=== PATIENT | female | born 1980 | race Caucasian/White ===

== ENCOUNTER 2017-03-31 03:08 | Inpatient (IN) | payer OTHER ==
[2017-03-31] VITALS: BP 118/70; RESP 17
[~2017-03-31] VITALS: Ht 154.9 cm; Wt 70.6 kg
[~2017-03-31 03:08] MED LIST: NO MEDS TAKEN
[2017-03-31 03:22] VITALS: Ht 154.9 cm; Wt 70.6 kg
[2017-03-31 03:23] VITALS: BP 121/70; PULSE 88; RESP 18
--- NOTE | 2017-03-31 04:12 | RADRPT ---
PROCEDURE: Biophysical profile. CLINICAL INDICATION: Pelvic pain. TECHNIQUE: Multiple sonographic images of the pelvis were obtained with transabdominal technique. COMPARISON: No prior studies are available for comparison. FINDINGS: There is a single living intrauterine gestation with the fetus in a vertex position. The placenta i s left lateral in location, grade II. heart tones of 154 beats per minute are identified. The re is normal amniotic fluid volume with an YEN of 10.7 cm. breathing movements = 2 Gross body movements = 2 tone = 2 Qualitative AFV = 2 IMPRESSION: Biophysical profile 8 out of 8. .Nathan Day MD, MD Date Time Electronically viewed and signed by .Nathan Day MD, MD on 03/31/2017 04:12 .T/
--- NOTE | 2017-03-31 04:14 | RADRPT ---
PROCEDURE: Obstetrical ultrasound, limited. CLINICAL INDICATION: Pelvic pain. TECHNIQUE: Multiple sonographic images of the pelvis were obtained using transabdominal technique . Images were obtained with nguyen scale and color Doppler. The images were reviewed on a PACS works tation. COMPARISON: No prior studies are available for comparison. FINDINGS: There is a single living intrauterine gestation with the fetus in a vertex presentation. hear t tones of 137 beats per minute are identified. The placenta is left lateral in location, grade 2. There is no evidence of placenta previa or abruption. Measurements were made in order to determine age. The results are as follows: BPD =8.65 cm HC =32.14 cm AC =37.24 cm FL =7.27 cm. Estimated gestational age of approximately 37 weeks and 3 days. The estimated date of delivery is 04/18/2017. The EFW = 3635 +/- 545 grams. Estimated weight percentage equals 65.3%. IMPRESSION: Single viable intrauterine gestation of approximately 37 weeks and 3 days, with an ultrasound KARISHMA of 04/18/2017. .Nathan Day MD, MD Date Time Electronically viewed and signed by .Nathan Day MD, MD on 03/31/2017 04:14 .T/
[2017-03-31] MEDS ORDERED: LIDOCAINE 1% (MPF) 30 ML INJ INJ PRN (06:30)
[2017-03-31] MEDS ORDERED: OXYTOCIN 30 UNITS/LR 500 ML IV SCH ×3 (06:30→19:45)
[2017-03-31] MEDS ORDERED: MISOPROSTOL 200 MCG TAB PR PRN ×2 (06:30→20:00)
[2017-03-31] MEDS ORDERED: BUTORPHANOL 2 MG INJ IV PRN (06:30)
[2017-03-31] MEDS ORDERED: OXYTOCIN 30 UNITS/LR 500 ML IV PRN ×2 (06:30→20:00)
[2017-03-31] MEDS ORDERED: METHYLERGONOVINE 0.2 MG INJ IM PRN ×2 (06:30→20:00)
[2017-03-31] MEDS ORDERED: CARBOPROST 250 MCG INJ IM PRN ×2 (06:30→20:00)
[2017-03-31] MEDS: LACTATED RINGER'S 1,000 ML IV SCH ×2 (06:56→14:57)
[2017-03-31] MEDS ORDERED: LACTATED RINGER'S 1,000 ML IV PRN (07:00)
[2017-03-31] MEDS ORDERED: LACTATED RINGER'S 1,000 ML IV ONE (07:15)
[2017-03-31 07:16] LABS: BASOPHILS % 0.2 % (0.0-2.0); EOSINOPHILS % 0.2 % (0.0-7.0); HEMATOCRIT 33.3 % (37.0-47.0); HEMOGLOBIN 10.9 g/dl (12.0-16.0); LYMPHOCYTES # 1.3 10^3/ul (0.8-2.9); LYMPHOCYTES % 8.9 % (15.0-51.0); MEAN CORPUSCULAR HEMOGLOBIN 26.9 pg (29.0-33.0); MEAN CORPUSCULAR HGB CONC 32.7 g/dl (32.0-37.0); MEAN CORPUSCULAR VOLUME 82.2 fl (82.0-101.0); MEAN PLATELET VOLUME 10.8 fl (7.4-10.4); MONOCYTE # 1.3 10^3/ul (0.3-0.9); MONOCYTES % 8.8 % (0.0-11.0); NEUTROPHILS % 80.8 % (39.0-77.0); PLATELET COUNT 266 10^3/UL (140-415); RED BLOOD COUNT 4.05 10^6/ul (4.20-5.40); RED CELL DISTRIBUTION WIDTH 14.4 % (11.5-14.5); WHITE BLOOD COUNT 14.8 10^3/ul (4.8-10.8)
[2017-03-31 07:20] LABS: INR 0.87; PROTIME 11.8 Sec (12.2-14.2); PT RATIO 0.9
[2017-03-31 07:21] LABS: PARTIAL THROMBOPLASTIN TIME 26.1 Sec (25.0-35.0)
[2017-03-31] MEDS ORDERED: TRIMETHOBENZAMIDE 100 MG/ML VIAL IM PRN (07:30)
[2017-03-31] MEDS ORDERED: FENTAnyl 2MCG/ML-ROPIV 0.2% 100 ML BAG EPI SCH (07:30)
[2017-03-31] MEDS ORDERED: NALOXONE (0.4 MG/ML) INJ IV PRN (07:30)
[2017-03-31] MEDS ORDERED: KETOROLAC 30 MG INJ IV PRN (07:30)
[2017-03-31] MEDS ORDERED: NALBUPHINE HCL (10 MG/1 ML) INJ IV PRN (07:30)
[2017-03-31] MEDS ORDERED: CITRIC ACID/NA CITRATE 30 ML CUP PO ONE (07:30)
[2017-03-31] MEDS ORDERED: ONDANSETRON 4 MG INJ IV PRN (07:30)
[2017-03-31] MEDS ORDERED: DIPHENHYDRAMINE 50 MG INJ IV PRN (07:30)
[2017-03-31] MEDS ORDERED: morphine 4 MG/ML VIAL IV PRN (07:30)
[2017-03-31] MEDS ORDERED: ONDANSETRON 4 MG INJ IV ONE (07:30)
[2017-03-31] MEDS ORDERED: morphine 2 MG INJ IV PRN (07:30)
[2017-03-31] MEDS ORDERED: ONDANSETRON 4 MG INJ ONE (07:31)
[2017-03-31] MEDS ORDERED: CITRIC ACID/NA CITRATE 30 ML CUP ONE (07:31)
[2017-03-31] MEDS ORDERED: FENTAnyl 2MCG/ML-ROPIV 0.2% 100 ML ONE (07:34)
[2017-03-31] MEDS ORDERED: MINERAL OIL LIGHT 10 ML VIAL TOP ONE (15:30)
--- NOTE | 2017-03-31 19:51 | LDN ---
Date/Time of Note Date/Time of Note DATE: 03/31/17 TIME: 19:48 Delivery Summary of a viable baby girl weighing 3140 grams or 6# 15 oz, 19" long, and with Apgars of 9/9. Weeks of Gestation 39w 1d Placenta Delivered: Spontaneously Meconium: none Episiotomy: No Perineal laceration: 2 Laceration repair: Second degree perineal laceration repaired with 2-0 chromic. Anesthesia type: Epidural Estimated blood loss: 200 Sponge & Needle done & correct: Yes All needle counts correct: Yes Any foreign bodies felt in the: No (vagina) Problems: Infant Delivery Information Sex Infant Sex: female Apgars 1 Minute: 9 5 Minute: 9 Suctioning Nose & mouth suctioned at endy: Yes Delee suction performed: No Umbilical Cord Umbilical cord with: 3 Vessels Cord presentations: nuchal cord Nuchal cord present X: 1 Cord Blood was obtained: Yes Mother & Baby Disposition Disposition Mom & Baby to Maternity; Good: Yes Baby to NICU: No NEERAJ EAST MD Mar 31, 2017 19:51
--- NOTE | 2017-03-31 19:55 | HP ---
Date/Time of Note Date/Time of Note DATE: 03/31/17 TIME: 19:52 OB - History Hx of Present Free Text/Dictation 36 y.o. with an IUP at 39w 1d came in labor, progressed from 60% and 2 cm to 70% and 3 cm and was admitted with expectant management. Estimated Due Date: Apr 06, 2017 : 3 Para: 2 Care: Good Care Ultrasounds: Normal mid trimester US Obstetrical Complications: None Medical Complications: None Past Family/Social History * Past Medical, Surgical, Family and Obstetric Histories reviewed from chart. Blood Type: O+ Rubella: immune RPR/VDRL: Negative GBS Status: Negative HBsAG: Negative OB Admission Exam Vital Signs Vital Signs Vital Signs Date Time Temp Pulse Resp B/P Pulse Ox O2 Delivery O2 Flow Rate FiO2 03/31/17 03:23 97.9 88 18 121/70 Room Air Physical Exam HEENT: WNL Heart: Rhythm Normal Lungs: Clear Abdomen: WNL Extremities: Normal Reflexes: Normal Cervical Dilatation: 3cm Effacement: 75% Station: -2 Membranes: Intact Amniotic Fluid: Clear Heart Rate: 140's Accelerations: Accelerations Present Decelerations: No Decelerations Varibility: Moderate Contractions on Admission: < 5 Minutes Apart Last 72 hours Lab Results CBC & BMP 03/31/17 06:45 OB Assessment/Plan Reason for admission: active labor Plan: Expectant Management Other plan: Will start pitocin only if needed. NEERAJ EAST MD Mar 31, 2017 19:55
[2017-03-31] MEDS ORDERED: LANOLIN 7 GM TUBE TOP PRN (20:00)
[2017-03-31] MEDS ORDERED: BENZOCAINE 20% 56 ML SPRAY TOP PRN (20:00)
[2017-03-31] MEDS ORDERED: HYDROCODONE/APAP (5/325) TAB PO PRN (20:00)
[2017-03-31] MEDS: IBUPROFEN 600 MG TAB PO SCH (20:51)
[2017-03-31 21:40] VITALS: BP 118/65; PULSE 75; RESP 18
[2017-03-31] MEDS: LACTATED RINGER'S 1,000 ML IV* SCH (22:28)
[2017-04-01] VITALS: BP 118/70; PULSE 85; RESP 17
[2017-04-01] MEDS ORDERED: IBUPROFEN 600 MG TAB PO SCH
[2017-04-01] MEDS: LACTATED RINGER'S 1,000 ML IV* SCH ×2 (00:14→11:45)
[2017-04-01 04:05] VITALS: BP 99/55; PULSE 76; RESP 17
[2017-04-01] MEDS: IBUPROFEN 600 MG TAB PO SCH ×4 (05:42→23:47)
[2017-04-01 08:00] VITALS: BP 99/53; PULSE 76; RESP 17
[2017-04-01 10:28] LABS: ABNORMAL IP MESSAGE 1; BASOPHILS % 0.2 % (0.0-2.0); EOSINOPHILS # 0.1 10^3/ul (0.0-0.5); EOSINOPHILS % 0.4 % (0.0-7.0); HEMATOCRIT 29.6 % (37.0-47.0); HEMOGLOBIN 9.5 g/dl (12.0-16.0); LYMPHOCYTES # 1.5 10^3/ul (0.8-2.9); LYMPHOCYTES % 9.4 % (15.0-51.0); MEAN CORPUSCULAR HEMOGLOBIN 27.1 pg (29.0-33.0); MEAN CORPUSCULAR HGB CONC 32.1 g/dl (32.0-37.0); MEAN CORPUSCULAR VOLUME 84.3 fl (82.0-101.0); MEAN PLATELET VOLUME 10.9 fl (7.4-10.4); MONOCYTE # 1.7 10^3/ul (0.3-0.9); MONOCYTES % 10.9 % (0.0-11.0); NEUTROPHILS % 77.6 % (39.0-77.0); PLATELET COUNT 241 10^3/UL (140-415); RED BLOOD COUNT 3.51 10^6/ul (4.20-5.40); RED CELL DISTRIBUTION WIDTH 14.6 % (11.5-14.5); WHITE BLOOD COUNT 15.4 10^3/ul (4.8-10.8)
[2017-04-01 10:30] LABS: POSITIVE DIFF @See below
[2017-04-01 16:00] VITALS: BP 100/58; PULSE 72; RESP 17
--- NOTE | 2017-04-01 19:52 | PD.PPDC ---
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
--- NOTE | 2017-04-01 19:54 | DS ---
Date/Time of Note Date/Time of Note DATE: 04/01/17 TIME: 19:53 Obstetrical Discharge Record Final Diagnosis Final Diagnosis: Term delivered Vaginal Delivery Obstetrical Delivery: Spontaneous, Laceration, Repaired Complications Augmentation: No Induction: No Condition on Discharge Physical Assessment Last Vitals: T= 98 BP 100/58 Voiding: Yes Bowel Movement: Yes Breast: Filling Fundus: Firm Calf Tenderness: No Patient Condition: Good NEERAJ EAST MD Apr 01, 2017 19:54
[2017-04-02 04:00] VITALS: BP 109/59; PULSE 83; RESP 29
[2017-04-02] MEDS: IBUPROFEN 600 MG TAB PO SCH ×3 (06:48→17:25)
[2017-04-02 08:33] VITALS: BP 142/73; PULSE 77; RESP 18
[2017-04-02] MEDS ORDERED: DIPHTH/TET/ACEL PERTUSS (ADULT) 0.5 ML VIAL IM* ONE (09:00)
== END 2017-04-02 19:00 | disposition home or self-care (01) | DRG 775 ==
LOC: L-D 03:08 → OBT 03:08 → L-D 06:08 → PP1 21:40
PROVIDERS: ADMIT Obstetrics & Gynecology; ATTEND Obstetrics & Gynecology
PROC: 10E0XZZ Delivery of Products of Conception, External Approach (ICD-10-PCS; principal; 2017-03-31)
PROC: 0KQM0ZZ Repair Perineum Muscle, Open Approach (ICD-10-PCS; 2017-03-31)
DX: O69.81X0 Labor and delivery complicated by cord around neck, without compression, not applicable or unspecified (principal); O70.1 Second degree perineal laceration during delivery; Z37.0 Single live birth; Z3A.39 39 weeks gestation of pregnancy
CPT/HCPCS: 62319; 76815; 76818; 85025; 85610; 85730; 86592; 86900; 86901; 87340; 90715; G0463; J2405; J2590; J3010; J7120

== ENCOUNTER 2017-07-04 14:40 | Emergency (ER) | payer OTHER ==
[~2017-07-04] VITALS: Ht 154.9 cm; Wt 61.0 kg
[2017-07-04 14:44] VITALS: Ht 154.9 cm; Wt 61.0 kg
[2017-07-04] MEDS ORDERED: SOD CHLORIDE 0.9% 1,000 ML IV STA (15:32)
[2017-07-04] MEDS ORDERED: ALBUTEROL 0.5% (NEB) 2.5 MG/0.5 ML AMP INH STA (15:32)
[2017-07-04] MEDS ORDERED: IBUPROFEN 600 MG TAB PO ONE (16:00)
[2017-07-04 16:20] LABS: ABNORMAL IP MESSAGE 1; BASOPHILS % 0.3 % (0.0-2.0); HEMOGLOBIN 13.3 g/dl (12.0-16.0); LYMPHOCYTES # 0.6 10^3/ul (0.8-2.9); LYMPHOCYTES % 17.5 % (15.0-51.0); MEAN CORPUSCULAR HEMOGLOBIN 28.2 pg (29.0-33.0); MEAN CORPUSCULAR HGB CONC 33.3 g/dl (32.0-37.0); MEAN CORPUSCULAR VOLUME 84.9 fl (82.0-101.0); MEAN PLATELET VOLUME 10.2 fl (7.4-10.4); MONOCYTE # 0.5 10^3/ul (0.3-0.9); NEUTROPHIL # 2.2 10^3/ul (1.6-7.5); NEUTROPHILS % 65.9 % (39.0-77.0); PLATELET COUNT 150 10^3/UL (140-415); RED BLOOD COUNT 4.71 10^6/ul (4.20-5.40); RED CELL DISTRIBUTION WIDTH 14.8 % (11.5-14.5); WHITE BLOOD COUNT 3.4 10^3/ul (4.8-10.8)
[2017-07-04 16:22] LABS: POSITIVE DIFF @See below
[2017-07-04 16:29] LABS: ADD UMIC YES; UR ASCORBIC ACID NEGATIVE (NEGATIVE); UR BILIRUBIN (Dip) NEGATIVE (NEGATIVE); UR BLOOD (Dip) 1+ mg/dL (NEGATIVE); UR CLARITY CLEAR (CLEAR); UR COLOR STRAW (YELLOW); UR GLUCOSE (Dip) NEGATIVE (NEGATIVE); UR KETONES (Dip) TRACE mg/dL (NEGATIVE); UR LEUKOCYTE ESTERASE (Dip) NEGATIVE Leu/ul (NEGATIVE); UR NITRITE (Dip) NEGATIVE (NEGATIVE); UR RBC 1 /HPF (0-5); UR SPECIFIC GRAVITY (Dip) 1.003 (1.003-1.030); UR TOTAL PROTEIN (Dip) NEGATIVE (NEGATIVE); UR UROBILINOGEN (Dip) NEGATIVE (NEGATIVE)
--- NOTE | 2017-07-04 16:29 | RADRPT ---
PROCEDURE: XR Chest. CLINICAL INDICATION: Abdominal pain. TECHNIQUE: Single frontal view of the chest was obtained. COMPARISON: None. FINDINGS: Cardiomediastinal silhouette appears normal Pulmonary vasculature appears normal. Lung shipman appear clear. Costophrenic angles are well defined. The osseous elements appear intact. IMPRESSION: 1. No evidence for active cardiopulmonary disease. RPTAT: [facility] Physician Luis Date Time Electronically viewed and signed by Charles Swain Physician on 07/04/2017 16:28 /
[2017-07-04] MEDS ORDERED: SOD CHLORIDE 0.9% 1,000 ML IV ONE (16:30)
--- NOTE | 2017-07-04 16:30 | ERD ---
ER Documentation Chief Complaint Chief Complaint sent by pmd to r/o pe, fever , cough , chest and back pain with inspiration HPI 36-year-old woman presents with upper back pain, recent fever, and cough associated with deep inspiration. She went to an urgent care facility just prior to arrival and was referred here for possible pulmonary embolism given her complaints of back pain, low-grade fever, and tachycardia. Patient gave about 3 months ago. Patient denies URI symptoms. She has had these symptoms 4 days, she states she was recently diagnosed with a UTI and has been using antibiotics as prescribed. Patient denies dysuria or hematuria, no vaginal discharge, no pelvic pain or cramping, patient denies hemoptysis, no shortness of breath, no vomiting or diarrhea, no headache or blurry vision, no abdominal pain. Patient also complains of left dorsal hand pain without redness or swelling. Patient denies history of blood clots ROS All systems reviewed and are negative except as per history of present illness. Medications Home Meds Reported Medications [No Meds Taken] No Conflict Check 03/29/11 Allergies Allergies: Coded Allergies: No Known Allergy (Verified , 03/29/11) PMhx/Soc None History of Surgery: No Anesthesia Reaction: No Hx Neurological Disorder: No Hx Respiratory Disorders: No Hx Cardiac Disorders: No Hx Psychiatric Problems: No Hx Miscellaneous Medical Probl: No Hx Alcohol Use: No Hx Substance Use: No Hx Tobacco Use: No Smoking Status: Never smoker FmHx Family History: No diabetes Physical Exam Vitals Vital Signs Date Time Temp Pulse Resp B/P Pulse Ox O2 Delivery O2 Flow Rate FiO2 07/04/17 15:51 88 20 95 21 07/04/17 14:44 100.9 128 18 135/68 98 Physical Exam GENERAL: Well-developed, well-nourished febrile, HEENT: Moist mucous membranes, pink conjunctiva, no cervical spine tenderness or step-off deformities, no goiter, no jaundice or icterus, extraocular movements intact without pain. No submandibular induration, and no pharyngeal erythema NEURO: Alert and oriented 3, cranial nerves II through XII intact bilaterally, pupils equal round reactive to light, no focal deficits or facial asymmetry, sensation intact distally Strength 5/5 in upper and lower extremities bilaterally CARDIAC: Tachycardic and regular, no murmurs rubs or gallops LUNGS: Clear bilaterally no wheezing crackles or stridor ABDOMEN: Soft nontender, no guarding, no rigidity, no rebound, no psoas sign no obturator sign. Normoactive bowel sounds SKIN: Warm and dry to touch, no abrasions, contusions, or hematomas, no lacerations, no ecchymosis, no target lesions, and without ulcers EXTREMITIES: No clubbing cyanosis or edema, calves are bilaterally symmetrical, no Homans sign, no popliteal cord sign. Distal pulses equal and bilateral PSYCH: Normal affect without agitation or irritability Result Diagram: 07/04/17 1540 07/04/17 1540 Results 24 hrs Laboratory Tests Test 07/04/17 15:40 White Blood Count 3.410^3/ul Red Blood Count 4.7110^6/ul Hemoglobin 13.3g/dl Hematocrit 40.0% Mean Corpuscular Volume 84.9fl Mean Corpuscular Hemoglobin 28.2pg Mean Corpuscular Hemoglobin Concent 33.3g/dl Red Cell Distribution Width 14.8% Platelet Count 50142^3/UL Mean Platelet Volume 10.2fl Neutrophils % 65.9% Lymphocytes % 17.5% Monocytes % 16.0% Eosinophils % 0.0% Basophils % 0.3% Nucleated Red Blood Cells % 0.0/100WBC Neutrophils # 2.210^3/ul Lymphocytes # 0.610^3/ul Monocytes # 0.510^3/ul Eosinophils # 0.010^3/ul Basophils # 0.010^3/ul Nucleated Red Blood Cells # 0.010^3/ul Prothrombin Time 12.9Sec Prothrombin Time Ratio 1.0 INR International Normalized Ratio 0.96 Urine Color STRAW Urine Clarity CLEAR Urine pH 6.0 Urine Specific [place] 1.003 Urine Ketones TRACEmg/dL Urine Nitrite NEGATIVEmg/dL Urine Bilirubin NEGATIVEmg/dL Urine Urobilinogen NEGATIVEmg/dL Urine Leukocyte Esterase NEGATIVELeu/ul Urine Microscopic RBC 1/HPF Urine Microscopic WBC 0/HPF Urine Hemoglobin 1+mg/dL Urine Glucose NEGATIVEmg/dL Urine Total Protein NEGATIVEmg/dl Sodium Level 139mmol/L Potassium Level 4.1mmol/L Chloride Level 100mmol/L Carbon Dioxide Level 29mmol/L Anion Gap 14 Blood Urea Nitrogen 7mg/dl Creatinine 0.86mg/dl Glucose Level 89mg/dl Lactic Acid Level 1.0mmol/L Calcium Level 9.3mg/dl Total Bilirubin 0.2mg/dl Direct Bilirubin 0.00mg/dl Indirect Bilirubin 0.2mg/dl Aspartate Amino Transf (AST/SGOT) 49IU/L Alanine Aminotransferase (ALT/SGPT) 48IU/L Alkaline Phosphatase 74IU/L Troponin I < 0.012ng/ml Total Protein 7.6g/dl Albumin 4.4g/dl Globulin 3.20g/dl Albumin/Globulin Ratio 1.37 Lipase 28U/L Current Medications Medications (Trade) Dose Ordered Sig/Reji Route PRN Reason Start Time Stop Time Status Last Admin Dose Admin Sodium Chloride (NS) 1,000 ml @ 1,000 mls/hr Q1H STAT IV 07/04/17 15:32 07/04/17 16:31 DC 07/04/17 15:58 Ibuprofen (Motrin) 600 mg ONCE ONCE PO 07/04/17 16:00 07/04/17 16:01 DC 07/04/17 15:58 Albuterol 5 mg 5 mg ONCE STAT INH 07/04/17 15:32 07/04/17 15:38 DC 07/04/17 15:32 Sodium Chloride (NS) 1,000 ml @ 1,000 mls/hr Q1H ONCE IV 07/04/17 16:30 07/04/17 17:29 DC 07/04/17 16:47 IV Flush 10 ml 10 ml STK-MED ONCE .ROUTE 07/04/17 17:07 07/04/17 17:08 DC Sodium Chloride 100 ml @ ud STK-MED ONCE .ROUTE 07/04/17 17:07 07/04/17 17:08 DC Iohexol (Omnipaque) 100 ml @ ud STK-MED ONCE .ROUTE 07/04/17 17:07 07/04/17 17:08 DC Procedures/MDM IV line was established patient was placed on alarm security or surveillance monitor rhythm strip revealed a sinus tachycardia at about 120 bpm with upright P and T waves. Patient was febrile. Blood and urine cultures were ordered results are pending I will follow-up. I do not suspect sepsis. I administered 2 L normal saline intravenously, ibuprofen 600 mg p.o. for fever , and albuterol 5 mg via nebulizer for recent cough and respiratory symptoms. She states the albuterol treatment did help with her symptoms. Chest X-ray 1V Interpreted by me: Soft Tissue: No acute abnormalities Bones: No acute abnormalities Mediastinum/Cardiac Silhouette/Lungs: No acute abnormalities EKG performed, read by me revealed, there is a sinus tachycardia at 120 bpm, normal axis, narrow QRS complex, T-wave inversions in inferolateral leads CBC and electrolytes were normal, neutrophils normal, liver function tests were normal, troponin was negative, urinalysis negative for infection. Influenza AB swabs were ordered results are pending I will follow-up. Lactic acid was low at 1. CT angiogram of the chest was performed was negative for pulmonary embolism. Examination of the left hand is benign she has normal-appearing skin and no bony deformity, no skin induration, no swelling, and full range of motion at the hand and wrist. Furthermore her abdominal examination is benign she has no McBurney's point tenderness, no psoas sign, no Sousa sign. Patient has no neck stiffness and is negative for Kernig's or Brudzinski sign. I do not suspect any serious underlying bacterial infection. Patient looks well and has no signs of mastitis. She is 3 months so fever is unlikely, I suspect she may have a viral infection, and she is already being treated for UTI successfully with trimethoprim sulfamethoxazole. She defervesced and her tachycardia resolved. Differential diagnoses considered, included but not limited to acute coronary syndrome, pulmonary embolism, aortic dissection, abdominal aortic aneurysm, sepsis, stroke, meningitis, encephalitis, pneumonia, appendicitis, cholecystitis , bowel obstruction, pyelonephritis, nephrolithiasis, cystitis, as well as metabolic, hematologic, and electrolyte abnormalities. As well as abscess, cellulitis, fractures, and dislocations. Patient feels much better at this time, and vital signs are normal, symptoms have improved. I did give strict instructions to return to the ED if symptoms continue or worsen, patient will otherwise follow-up with primary care physician. Patient understood instructions and agreed to plan. Disclaimer: Inadvertent spelling and grammatical errors are likely due to EHR/ dictation software use and do not reflect on the overall quality of patient care. Also, please note that the electronic time recorded on this note does not necessarily reflect the actual time of the patient encounter. Departure Diagnosis: Primary Impression: Fever Fever type: unspecified Qualified Code: R50.9 - Fever, unspecified fever cause Additional Impressions: UTI (urinary tract infection) Urinary tract infection type: acute cystitis Hematuria presence: without hematuria Qualified Code: N30.00 - Acute cystitis without hematuria Left hand pain Condition: Good OSMAN BRUCE MD Jul 04, 2017 16:30
[2017-07-04 16:45] LABS: INR 0.96; PROTIME 12.9 Sec (11.9-14.9)
[2017-07-04 16:50] LABS: ALANINE AMINOTRANSFERASE 48 IU/L (13-69); ALBUMIN 4.4 g/dl (3.3-4.9); ALBUMIN/GLOBULIN RATIO 1.37; ALKALINE PHOSPHATASE 74 IU/L (42-121); ANION GAP 14 (8-16); ASPARTATE AMINO TRANSFERASE 49 IU/L (15-46); BILIRUBIN,INDIRECT 0.2 mg/dl (0-1.1); BILIRUBIN,TOTAL 0.2 mg/dl (0.2-1.3); BLOOD UREA NITROGEN 7 mg/dl (7-20); CALCIUM 9.3 mg/dl (8.4-10.2); CARBON DIOXIDE 29 mmol/L (21-31); CHLORIDE 100 mmol/L (97-110); CREATININE 0.86 mg/dl (0.44-1.00); GLUCOSE 89 mg/dl (70-220); POTASSIUM 4.1 mmol/L (3.5-5.1); SODIUM 139 mmol/L (135-144); TOTAL PROTEIN 7.6 g/dl (6.1-8.1)
[2017-07-04 17:04] LABS: TROPONIN-I < 0.012 ng/ml (0.00-0.12)
[2017-07-04] MEDS ORDERED: SOD CHLORIDE 0.9% 100 ML ONE (17:07)
[2017-07-04] MEDS ORDERED: IOHEXOL 100 ML ONE (17:07)
--- NOTE | 2017-07-04 17:25 | RADRPT ---
PROCEDURE: CTA Chest. CLINICAL INDICATION: Chest pain. Rule out pulmonary embolism. TECHNIQUE: The study was performed utilizing a multidetector CT scanner. Direct spiral 1 mm axial sections were obtained from the thoracic inlet to the upper abdomen with the use of 100 cc of Omnip aque 350 nonionic intravenous contrast material and reformatted at 3 mm. Coronal, sagittal and 3-D a ngiographic reformations were obtained. The images were reviewed on a PACS workstation. CT D I 70 mCi Dose 205 mGy/cm Individualized dose optimization technique was used for the performance of this exam. This included 1. Automated exposure control. 2. Adjustment of the mA and / or kV according to the patient's size. 3. Use of iterative reconstruction technique. COMPARISON: No prior studies are available for comparison. FINDINGS: There is no central or peripheral pulmonary embolism. Thoracic aorta is normal with no dissection o r aneurysm. No lung infiltrate or mass is seen. There is no hilar or mediastinal adenopathy or mass . No pleural or pericardial effusion is visualized. There is no pneumothorax. No upper abdominal or adrenal mass is present. There are gallstones. The osseous structures appear normal. IMPRESSION: No pulmonary embolism. No thoracic aortic aneurysm or dissection. No pneumonia. .Jose Caceres MD, Date Time Electronically viewed and signed by .Jose Caceres MD, on 07/04/2017 17:24 .A/
[2017-07-04] MEDS ORDERED: ALBU8.5H3 INH (18:37)
[2017-07-04] MEDS ORDERED: NITR-58 PO (18:42)
[2017-07-04 19:57] VITALS: BP 124/77; PULSE 95; RESP 18
== END 2017-07-04 19:54 | disposition home or self-care (01) ==
LOC: E/R 14:40
DX: N30.00 Acute cystitis without hematuria (principal); M25.542 Pain in joints of left hand; R07.9 Chest pain, unspecified
CPT/HCPCS: 36415; 71010; 71275; 80053; 81001; 83605; 83690; 84484; 85025; 85610; 87040; 87086; 87400; 94664; 99285; J7030; Q9967